=== PATIENT | female | born 1935 | race African-American/Black ===

== ENCOUNTER 2016-10-11 13:00 | Inpatient (IN) ==
[~2016-10-11 13:00] MED LIST: ACETAMINOPHEN 325 MG TABLET PO PRN; DOCUSATE SODIUM 100 MG CAPSULE PO PRN; MAGNESIUM SULF RIDER 2 GM in PREMIX 1 EACH IV PRN; MAGNESIUM SULF RIDER 4 GM in PREMIX 1 EACH IV PRN; MORPHINE 2 MG/1 ML SYRINGE IV PRN; ONDANSETRON 4 MG/2 ML VIAL IV PRN
[2016-10-11 14:18] LABS: Troponin I Only < 0.015 NG/ML (0.00-0.045)
--- NOTE | 2016-10-11 14:42 | Cardiology History & Physical ---
Assessment and Plan - Time spent with patient Time spent with patient: Greater than 30 minutes (1) Bradycardia Status: Acute Assessment and plan: SEE PLAN OF CARE LISTED BELOW Current Visit: Yes (2) Hypertension Status: Chronic Assessment and plan: SEE PLAN OF CARE LISTED BELOW Current Visit: Yes (3) Dyslipidemia Status: Chronic Assessment and plan: SEE PLAN OF CARE LISTED BELOW Current Visit: Yes (4) Advanced age Status: Chronic Assessment and plan: SEE PLAN OF CARE LISTED BELOW Current Visit: Yes (5) Dementia Status: Chronic Assessment and plan: SEE PLAN OF CARE LISTED BELOW Current Visit: Yes (6) Murmur, cardiac Status: Chronic Assessment and plan: SEE PLAN OF CARE LISTED BELOW Current Visit: Yes History of Present Illness Chief complaint: Symptomatic bradycardia History of present illness: 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 Burrell, 80BF, previously followed by Dr. Limon though not seen in cardiology clinic since October 2014. Risk factors include: advanced age, hypertension, dyslipidemia. Past medical history includes: bradycardia, moderate aortic stenosis, dementia. Much of this information is taken from the daughter, Padmaja, as her mother does have dementia. Padmaja his sister has power of attorney recruiter and is not present at this time. Patient was visiting with her daughter, Padmaja, when she requested a BC powder for chest pain. Her daughter took her to [place] ED where Dr. Groves evaluated patient and found her to be in sinus bradycardia, heart rate as low as 39 bpm. Patient's chest pain resolved prior to being evaluated, cardiac biomarkers are negative, EKG does not reflect [place]. Again, patient cannot further elaborate on chest pain and is usually fairly active cooking and cleaning her home. She still lives alone. After reviewing Dr. Limon October 2014 note, patient has a history of bradycardia and heart murmur. Approximately 2 years ago she wore a Holter monitor for 7 hours, heart rate down to 39 bpm, maximum 83 bpm and mean of 59 bpm. At that time, echo revealed EF 60%, moderate AMS and moderate mitral valve sclerosis. A long discussion ensued with the patient at that time as well as family members. Pacemaker was recommended certain that this represented sick sinus syndrome and bradycardia arrhythmias. At that time, family and patient felt as if they did not want to pursue pacemaker as she was asymptomatic. Today, in her demented state, denies chest pain, heaviness, tightness or shortness of breath. Denies syncope, near syncope or dizziness. Padmaja reports that she has no complaints of the previously stated symptoms that she is aware of. I personally contacted her pharmacy and spoke with pharmacist regarding the medication she is taking. She is not taking any arsen blocking agents. Echocardiogram has been ordered, thyroid studies. Labs from [facility] reveal no significant abnormality (BMP, magnesium, CBC). Continue to follow telemetry. EKG now. I did discuss the possibility of need for pacemaker with Ms. Burrell and her daughter. They are considering. Patient does have a significant aortic stenosis murmur and will await results from the echo. May consider treadmill stress test to evaluate chronotropic competence as patient and daughter believe she is not having significant symptoms. Will further discuss with Dr. Paulson and await additional recommendations. ASSESSMENT/PLAN: 1. BRADYCARDIA - EKG now, continue to follow telemetry. Patient may need PPM. 2. HYPERTENSION - usually well controlled, avoiding arsen blocking agents. Adjust medications accordingly during hospital stay 3. DYSLIPIDEMIA - fasting lipid profile in the morning. Continue Pravastatin 4. DEMENTIA - continue Aricept and Namenda. 5. MURMUR, CARDIAC - echo Home Medications Medication Instructions Recorded Confirmed Type Acetaminophen with Codeine 1 tablet PO DAILY 10/11/16 10/11/16 History [Acetaminophen-Cod #3 Tablet] Amlodipine Besylate [Amlodipine 10 mg PO DAILY 10/11/16 10/11/16 History Besylate] Donepezil HCl [Donepezil HCl] 10 mg PO BID 10/11/16 10/11/16 History Memantine [Namenda] 10 mg PO BID 10/11/16 10/11/16 History Pravastatin Sodium 20 mg PO BID 10/11/16 10/11/16 History Allergies Allergy/AdvReac Type Severity Reaction Status Date / Time No Known Allergies Allergy Unverified 06/02/14 11:36 Medical,Surgical,& Family Hx - Medical History Cardio: History of: Cardiac Dysrhythmia (Bradycardia), Hypertension (no current medications for this) No history of: CHF, CAD, [place] Neurology: History of: Dementia Endocrine: No history of: Diabetes Mellitus (IDDM), Diabetes Mellitus (NIDDM), Dyslipidemia Respiratory: No history of: Asthma, Bronchitis, COPD, Pneumonia Renal: No history of: Renal Problems Genitourinary: No history of: Problems Gastrointestinal: No history of: Gastrointestinal Bleed, GI Problems - Social History Smoking Status: Smoker, status unknown Frequency of Alcohol Use: None Type of Drug Use: None Lives With:: Alone Cardiology Physical Exam - Constitutional Vitals: Vital Signs Temp Pulse Resp BP Pulse Ox 97.9 F 40 L 18 154/64 98 10/11/16 13:12 10/11/16 14:00 10/11/16 13:12 10/11/16 13:12 10/11/16 13:43 Intake and Output 10/10/16 10/11/16 10/11/16 23:59 07:59 15:59 Other: Weight 51.341 kg Patient Weight 10/11/16 23:59 Weight 51.341 kg Exam: General: [Appears well with no apparent distress.] [Pleasant and cooperative. ] [Appears comfortable.] HEENT: [Bilateral arcus, normocephalic, atraumatic. Mucous membranes moist. No jaundice noted. Conjunctiva moist and clear, sclerae anicteric] Neck: No JVD/HJR, no thyromegaly or lymphadenopathy noted. Bilateral carotid bruits appreciated (suspect radiation from murmur) Cardiac: [Slow rate, regular rhythm.] [/ MICHAEL noted best at bilateral upper sternal borders] Lungs: [Clear to auscultation without accessory muscle use to assist the respiratory pattern.] Not requiring oxygen Abdomen: Soft, bowel sounds normoactive. Nontender and nondistended. No abdominal bruit or thrill noted. No masses noted. Musculoskeletal: No fluid collection. Decreased range of motion is noted. Extremities: No clubbing, cyanosis noted. [ No edema noted.] Upper extremity pulses 2+. Lower extremity pulses 2+. Capillary refill less than 3 seconds. Skin: No unusual lesions or rashes. No skin breakdown appreciated. Neuro: Awake, alert and oriented 3. Moves all extremities well without hemiparesis or paralysis. No essential tremor is appreciated. Result/EKG - Labs Lab Results: I have reviewed the past 24 hour labs (Reviewed labs from [facility]) Labs: Laboratory Results - last 24 hr 10/11/16 13:37 Free T4 0.88 - Diagnostic Findings Procedure: Chest x-ray: pending - EKG EKG results: interpreted by me EKG shows: bradycardia
--- NOTE | 2016-10-11 14:45 | EKG Report ---
Stationary ECG Study [facility] Test Date: 10/11/2016 2:45:18 PM Pat Name: EVA FLORES Department: Room: 268 Gender: F Leaf Conditioner: : 1935 Requested by: Jacqui Clark Order Number: [id number] Reading MD: LUCITA NOBLE Intervals [place] Rate: 41 P: 76 ID: [id number] QRS: 70 QRSD: 105 T: -12 QT: 530 QTc: 467 Interpretive Statements SINUS BRADYCARDIA POSSIBLE SEPTAL MYOCARDIAL INFARCTION, OF INDETERMINATE AGE MODERATE T-WAVE ABNORMALITY, CONSIDER ANTEROLATERAL ISCHEMIA Electronically Signed On 10-11-16 15:53:41 CDT by LUCITA NOBLE [email or web address]
--- NOTE | 2016-10-11 15:25 | XRay Report ---
2 view chest. Indication: Chest pain. Comparison: June 28, 2013. The heart is enlarged. There is left atrial prominence. There is prominence of both hilar regions which remain stable. There is calcific plaque present within the aortic knob. There are areas of scarring within the lung carey. No consolidation, pneumothorax, or pleural effusion. Moderate gaseous distention of bowel. Diffuse demineralization of the osseous structures. Impression: Stable cardiomegaly. No acute abnormality. PROCEDURE INTERPRETED AT [facility] DEPARTMENT OF RADIOLOGY Final Report Signed by: Dr. Meghan Pavon
[2016-10-11 15:31] LABS: Apearance,Urine Slightly Hazy (Clear); Bacteria,Urine Occasional /HPF (Few); Bilirubin,Urine Negative (Negative); Blood, Urine Negative (Negative); Glucose,Urine (UA) Negative (Negative); Ketones,Urine Negative (Negative); Mucus,Urine Few /LPF (Occasional); Nitrite,Urine Negative (Negative); Protein,Urine Negative; RBC,Urine 1 /HPF (0-4); Squamous Epithelial Cell,Urine Occasional /HPF (0-10); Urine Color Yellow (Yellow); Urine Specific Gravity 1.021 (1.001-1.035); Urine Urobilinogen < 2.0 EU/DL (0.2-1.0); WBC,Urine 1 /HPF (0-6)
--- NOTE | 2016-10-11 15:48 | ECHO Report ---
Smita Burrell Exam Date: 10/11/2016 14:08 Referring Physician: Technologist: kathy Hodges ARDMS, RVT Age: 80 Ht (in): 66 Wt (lb): 113 Gender: F Exam Location: [facility] Echo Indications: Chest pain, unspecified, Shoulder and back pain BP: / HR: 42 Rhythm: Sinus Technical Quality: Good IMPRESSIONS 1 - 2 + Increased left ventricular wall thickness. Left ventricular ejection fraction is estimated at 65 %. Mild to moderate atrial enlargement in apical view (elongated LA). Mitral valve sclerosis. Moderate aortic valve calcification. Mild aortic valve stenosis, mean gradient 19 mmHg, GENIA 1.2 cm. Trace to mild aortic valve regurgitation. Trace tricuspid valve regurgitation. Tricuspid regurgitation velocities suggest a PAP of 38 mmHg. Trace pulmonary valve regurgitation. MEASUREMENTS (Male / Female) Normal Values 2D ECHO LV Diastolic Diameter PLAX 4.0 cm 4.2 - 5.9 / 3.9 - 5.3 cm LV Systolic Diameter PLAX 2.1 cm LV Fractional Shortening PLAX 47.8 % IVS Diastolic Thickness 1.2 cm 0.6 - 1.0 / 0.6 - 0.9 cm LVPW Diastolic Thickness 1.1 cm 0.6 - 1.0 / 0.6 - 0.9 cm RV Internal Dim ED PLAX 4.1 cm Aortic Root Diameter 2.9 cm LA Systolic Diameter LX 3.8 cm 3.0 - 4.0 / 2.7 - 3.8 cm DOPPLER TR Peak Velocity 266.0 cm/s TR Peak Gradient 28.3 mmHg FINDINGS Left Ventricle Normal left ventricular cavity size. 1 - 2 + Increased left ventricular wall thickness. Left ventricular ejection fraction is estimated at 65 %. Right Ventricle The right ventricle is normal in size and function. Right Atrium The right atrium is normal in size. Left Atrium Mild to moderate atrial enlargement in apical view (elongated LA). Mitral Valve Mitral valve sclerosis. Mild mitral annular calcification. Aortic Valve Moderate aortic valve calcification. Mild aortic valve stenosis, mean gradient 19 mmHg, GENIA 1.2 cm. Trace to mild aortic valve regurgitation. Tricuspid Valve Morphologically normal tricuspid valve. Trace tricuspid valve regurgitation. Tricuspid regurgitation velocities suggest a PAP of 38 mmHg. Pulmonic Valve Morphologically normal pulmonic valve. Trace pulmonary valve regurgitation. Pericardium Normal pericardium without effusion. Aorta Normal ascending aorta dimension. Kenton Paulson MD (Electronically Signed) Final Date: 11 October 2016 15:47
[2016-10-11 15:55] VITALS: BP 166/70
--- NOTE | 2016-10-11 16:38 | Discharge Summary ---
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 LIMON Ms. Burrell, 80BF, previously followed by Dr. Limon though not seen in cardiology clinic since October 2014. Risk factors include: advanced age, hypertension, dyslipidemia. Past medical history includes: bradycardia, moderate aortic stenosis, dementia. Much of this information is taken from the daughter, Padmaja, as her mother does have dementia. Padmaja his sister has power of attorney lawyer and is not present at this time. Patient was visiting with her daughter, Padmaja, when she requested a BC powder for chest pain. Her daughter took her to [place] ED where Dr. Groves evaluated patient and found her to be in sinus bradycardia, heart rate as low as 39 bpm. Patient's chest pain resolved prior to being evaluated, cardiac biomarkers are negative, EKG does not reflect [place]. Again, patient cannot further elaborate on chest pain and is usually fairly active cooking and cleaning her home. She still lives alone. After reviewing Dr. Limon October 2014 note, patient has a history of bradycardia and heart murmur. Approximately 2 years ago she wore a Holter monitor for 7 hours, heart rate down to 39 bpm, maximum 83 bpm and mean of 59 bpm. At that time, echo revealed EF 60%, moderate AMS and moderate mitral valve sclerosis. A long discussion ensued with the patient at that time as well as family members. Pacemaker was recommended certain that this represented sick sinus syndrome and bradycardia arrhythmias. At that time, family and patient felt as if they did not want to pursue pacemaker as she was asymptomatic. Today, in her demented state, denies chest pain, heaviness, tightness or shortness of breath. Denies syncope, near syncope or dizziness. Padmaja reports that she has no complaints of the previously stated symptoms that she is aware of. I personally contacted her pharmacy and spoke with pharmacist regarding the medication she is taking. She is not taking any arsen blocking agents. Echocardiogram has been ordered, thyroid studies. Labs from [place] ED reveal no significant abnormality (BMP, magnesium, CBC). Continue to follow telemetry. EKG now. I did discuss the possibility of need for pacemaker with Ms. Burrell and her daughter. They are considering. Patient does have a significant aortic stenosis murmur and will await results from the echo. May consider treadmill stress test to evaluate chronotropic competence as patient and daughter believe she is not having significant symptoms. Will further discuss with Dr. Paulson and await additional recommendations. ASSESSMENT/PLAN: 1. BRADYCARDIA - EKG now, continue to follow telemetry. Patient may need PPM. 2. HYPERTENSION - usually well controlled, avoiding arsen blocking agents. Adjust medications accordingly during hospital stay 3. DYSLIPIDEMIA - fasting lipid profile in the morning. Continue Pravastatin 4. DEMENTIA - continue Aricept and Namenda. 5. MURMUR, CARDIAC - echo ADDENDUM: Echocardiogram revealed EF of 60%, mild aortic stenosis. Dr. Paulson saw patient and granddaughter today and discussed the possibility of permanent pacemaker implantation. Ms. Burrell vehemently declined pacemaker. Therefore, her power of attorney lawyer was contacted Bibi Sanderson regarding recommendations. It was felt best to discharge Ms. Burrell as she and Ms. Sanderson felt as if she was having no symptoms from her bradycardia including denying syncope, near syncope, fatigue, lightheadedness or dizziness. Ms. Sanderson and her other daughter, Padmaja, state that Ms. Burrell can walk many miles at a time without complaints. We discussed the possibility of a Holter monitor however, Ms. Sanderson was not aware the monitor. Greater than 20 minutes was spent discussing signs and symptoms of symptomatic bradycardia with patient and family members. Family members will monitor her for these symptoms. We will give her a follow-up appoint with Dr. Limon in approximately 2 weeks for further workup and/or management as necessary. - Time spent with patient Time with patient DS: Greater than 30 minutes Diagnosis - Discharge Diagnosis (1) Bradycardia Status: Chronic (2) Hypertension Status: Chronic (3) Dyslipidemia Status: Chronic (4) Advanced age Status: Chronic (5) Dementia Status: Chronic (6) Murmur, cardiac Status: Chronic Specialty Discharge - Follow Up or Referrals Follow up with: Jonas Limon MD [Physician] - 2 Weeks (EKG) Discharge Plan - Discharge Data Disposition: Disch To Home/Self Care Condition at Discharge: Stable Discharge Diet: advance to your usual diet Activity: resume usual activities as tolerated Hygiene: no restrictions Weight Bearing at Discharge: full weight bearing Driving: other (No driving) Contact your physician if you experience:: fever over 101, Difficulty voiding, Redness or swelling, Nausea/Vomiting, Shortness of breath, Bleeding, pain uncontrolled by pain medications - Discharge Medications Continue Amlodipine Besylate 10 mg PO DAILY Memantine [Namenda] 10 mg PO BID Acetaminophen with Codeine [Acetaminophen-Cod #3 Tablet] 1 tablet PO DAILY Pravastatin Sodium 20 mg PO BID Donepezil HCl 10 mg PO BID - Follow Up or Referral - Forms/Instructions Exam - Constitutional Vitals: Period Temp Pulse Resp BP Sys/Higgins Pulse Ox Last 24 Hr 97.7 F-97.9 F 40-45 18-18 154-191/64-77 95-98 Exam: General: [Appears well with no apparent distress.] [ [Appears comfortable.] HEENT: [PERRL, normocephalic, atraumatic. Mucous membranes moist. No jaundice noted. Conjunctiva moist and clear, sclerae anicteric] Neck: No JVD/HJR, no thyromegaly or lymphadenopathy noted. No carotid bruit appreciated Cardiac: [Slow rate and rhythm. IV/ systolic ejection murmur heard best at bilateral upper sternal borders. Lungs: [Clear to auscultation without accessory muscle use to assist the respiratory pattern.] Not requiring oxygen Abdomen: Soft, bowel sounds normoactive. Nontender and nondistended. No abdominal bruit or thrill noted. No masses noted. Musculoskeletal: No fluid collection. Decreased range of motion is noted. Extremities: No clubbing, cyanosis noted. [ No edema noted.] Upper extremity pulses 2+. Lower extremity pulses 2+. Capillary refill less than 3 seconds. Skin: No unusual lesions or rashes. No skin breakdown appreciated. Neuro: Awake, alert and oriented to person. Moves all extremities well without hemiparesis or paralysis. No essential tremor is appreciated. Discharge Results Procedures and tests throughout hospitalization: Pending Orders 10/11/16 21:00 Troponin,CKMB & Ck Total Q8H 10/12/16 04:00 Comp Blood Count Auto Diff IN AM Comprehensive Metabolic Panel IN AM Lipid Panel IN AM 10/12/16 05:00 Troponin,CKMB & Ck Total Q8H Labs on day of discharge: Labs from last 24 hours 10/11/16 10/11/16 10/11/16 Unknown 13:37 13:37 Total Creatine Kinase 97 CK-MB (CK-2) 1.3 Troponin I < 0.015 Free T4 0.88 TSH 3rd Generation Urine Color Yellow Urine Appearance Slightly hazy Urine pH 5.0 Ur Specific [place] 1.021 Urine Protein Negative Urine Glucose (UA) Negative Urine Ketones Negative Urine Blood Negative Urine Nitrate Negative Urine Bilirubin Negative Urine Urobilinogen < 2.0 H Urine Leukocytes Trace Urine RBC 1 Urine WBC 1 Ur Squamous Epith Cells Occasional Urine Bacteria Occasional Urine Mucus Few Ur Culture Indicated? Not indicated 10/11/16 13:37 Total Creatine Kinase CK-MB (CK-2) Troponin I Free T4 TSH 3rd Generation 0.550 Urine Color Urine Appearance Urine pH Ur Specific [place] Urine Protein Urine Glucose (UA) Urine Ketones Urine Blood Urine Nitrate Urine Bilirubin Urine Urobilinogen Urine Leukocytes Urine RBC Urine WBC Ur Squamous Epith Cells Urine Bacteria Urine Mucus Ur Culture Indicated? - Imaging and Cardiology Cardiology Procedure: report reviewed by me Procedure: Chest x-ray: report reviewed by me, Ultrasound: report reviewed by me (Echocardiogram) DS: Provider Date of admission: 10/11/16 13:03 Primary care physician: . No PCP Attending physician on admission: Kenton Paulson MD Discharging clinician: Jacqui Mckeon NP Expected date of discharge: 10/11/16
[2016-10-12] MEDS ORDERED: PANTOPRAZOLE 40 MG TABLET PO SCH (09:00)
== END 2016-10-11 17:17 | disposition home or self-care (01) | DRG 310 ==
LOC: N.TELES 13:03
PROVIDERS: ADMIT Internal Medicine Cardiovascular Disease; ATTEND Internal Medicine Cardiovascular Disease

== ENCOUNTER 2019-11-17 12:03 | Inpatient (IN) ==
[2019-11-17] MEDS ORDERED: SODIUM CHLORIDE 0.9% 500 ML IV STA (12:33)
[2019-11-17 12:44] LABS: Basophils % 0.2 % (0.0-0.8); Eosinophils # 0.1 10*3/uL (0.0-0.87); Eosinophils % 0.4 % (0.00-10.9); Hemoglobin 10.8 GM/DL (12.0-16.0); Immature Granulocytes % 0.5 %; Immature Granulocytes Absolute 0.09 #; Lymphocytes % 5.7 % (21.3-54.2); Mean Corpuscular HGB Conc 30.9 GM/DL (32-36); Mean Platelet Volume 10.7 FL (9.6-12.0); Monocytes % 3.9 % (1.7-12.7); Neutrophils % 89.3 % (38.7-73.9); Platelet Count 153 T/CUMM (130-400); Red Blood Count 4.12 MC/CUMM (3.8-5.5); Red Cell Distribution Width 14.8 % (9.3-17.3); White Blood Count 18.2 T/CUMM (4-12)
[2019-11-17 12:57] LABS: ABG Base Excess 0.7 MMOL/L (-2.5-2.5); ABG HCO3 24.9 MMOL/L (20-26); ABG Oxygen Saturation 93.4 % (95-100); ABG PCO2 38.2 MM HG (35-48); ABG PH 7.432 (7.35-7.45); ABG PO2 71.2 MM HG (80-95); ABG TCO2 26.1 MMOL/L (23-27); Allen Test Positive
[2019-11-17 13:08] LABS: Albumin 2.3 G/DL (3.4-5.0); Bilirubin,Total 0.9 MG/DL (0.2-1.0); Calcium 8.8 MG/DL (8.5-10.1); Osmolality,Calculated 303.9 MOS/KG (273-304); Total Protein 6.4 G/DL (6.4-8.3)
[2019-11-17] MEDS ORDERED: SODIUM CHLORIDE 0.9% 1,000 ML IV STA ×2 (14:03→14:09)
[2019-11-17 14:16] LABS: Apearance,Urine Slightly Hazy (Clear); Bilirubin,Urine Negative (Negative); Blood, Urine Small mg/dL (Negative); Glucose,Urine (UA) 50 mg/dL (Negative); Ketones,Urine Negative (Negative); Mucus,Urine Many /LPF (Occasional); Nitrite,Urine Negative (Negative); Protein,Urine 100 MG/DL; RBC,Urine 2 /HPF (0-4); Squamous Epithelial Cell,Urine Occasional /HPF (0-10); Urine Color Yellow (Yellow); Urine Specific Gravity 1.017 (1.001-1.035); WBC,Urine 3 /HPF (0-6)
[2019-11-17] MEDS ORDERED: cefTRIAXone 1,000 MG in SODIUM CHLORIDE 0.9% 100 ML IV STA (14:32)
[2019-11-17] MEDS ORDERED: ONDANSETRON 4 MG/2 ML VIAL IV PRN (15:41)
[2019-11-17] MEDS ORDERED: HEPARIN DRIP 25,000 UNITS/500 ML PREMIX IV SCH (16:00)
[2019-11-17] MEDS: dilTIAZem Drip 125 MG/125 ML PREMIX IV SCH (16:15)
[2019-11-17] MEDS ORDERED: PNEUMOCOCCAL VACCINE (13 VALENT) 0.5 ML SYRINGE IM ONE (19:23)
[2019-11-17] MEDS: POTASSIUM CHLORIDE 20 MEQ TABLET PO SCH (19:29)
[2019-11-17] MEDS: PANTOPRAZOLE 40 MG TABLET PO SCH (19:29)
[2019-11-17] MEDS: ALBUTEROL 2.5 MG/3 ML NEB RESP TX SCH (19:56)
[2019-11-18 00:36] LABS: Calcium 8.8 MG/DL (8.5-10.1)
[2019-11-18 00:41] LABS: Albumin 2.3 G/DL (3.4-5.0); Bilirubin,Total 0.7 MG/DL (0.2-1.0); Total Protein 6.5 G/DL (6.4-8.3)
[2019-11-18 00:49] LABS: Basophils % 0.3 % (0.0-0.8); Eosinophils % 0.1 % (0.00-10.9); Hematocrit 34.2 VOL% (35.7-47.0); Hemoglobin 10.7 GM/DL (12.0-16.0); Immature Granulocytes % 0.9 %; Immature Granulocytes Absolute 0.11 #; Lymphocytes # 1.6 10*3/uL (1.4-4.0); Lymphocytes % 13.4 % (21.3-54.2); Mean Corpuscular HGB Conc 31.3 GM/DL (32-36); Mean Corpuscular Volume 82.8 FL (87-102); Mean Platelet Volume 11.3 FL (9.6-12.0); Neutrophils % 77.3 % (38.7-73.9); Platelet Count 155 T/CUMM (130-400); Red Blood Count 4.13 MC/CUMM (3.8-5.5); Red Cell Distribution Width 14.8 % (9.3-17.3); White Blood Count 11.9 T/CUMM (4-12)
[2019-11-18] MEDS: ALBUTEROL 2.5 MG/3 ML NEB RESP TX SCH ×4 (01:41→19:51)
[2019-11-18] MEDS: dilTIAZem Drip 125 MG/125 ML PREMIX IV SCH (04:29)
[2019-11-18 09:55] LABS: Calcium 8.7 MG/DL (8.5-10.1); Osmolality,Calculated 304.9 MOS/KG (273-304)
[2019-11-18] MEDS: PANTOPRAZOLE 40 MG TABLET PO SCH (09:57)
[2019-11-18] MEDS: POTASSIUM CHLORIDE 20 MEQ TABLET PO SCH (09:57)
[2019-11-18] MEDS ORDERED: POTASSIUM CHLORIDE 20 MEQ/15 ML UDCUP PO ONE (09:58)
[2019-11-18] MEDS: DILTIAZEM 30 MG TABLET PO SCH ×3 (11:37→23:39)
[2019-11-18] MEDS: APIXABAN 5 MG TABLET PO SCH ×2 (12:23→23:39)
[2019-11-18] MEDS: DEXTROSE 5% 1,000 ML IV SCH (15:02)
[2019-11-18 15:55] VITALS: BP 135/52
[2019-11-18] MEDS: DONEPEZIL 10 MG TABLET PO SCH (23:40)
[2019-11-18] MEDS: MEMANTINE 10 MG TABLET PO SCH (23:40)
[2019-11-18] MEDS: MENTHOL/ZINC OXIDE OINT 71 GM JAR TOP SCH (23:40)
[2019-11-19] MEDS: ALBUTEROL 2.5 MG/3 ML NEB RESP TX SCH ×2 (00:11→07:38)
[2019-11-19] MEDS: DILTIAZEM 30 MG TABLET PO SCH ×2 (04:09→10:47)
[2019-11-19 04:38] LABS: Basophils % 0.2 % (0.0-0.8); Eosinophils # 0.2 10*3/uL (0.0-0.87); Eosinophils % 1.6 % (0.00-10.9); Hematocrit 35.8 VOL% (35.7-47.0); Immature Granulocytes % 1.1 %; Immature Granulocytes Absolute 0.11 #; Lymphocytes # 1.7 10*3/uL (1.4-4.0); Lymphocytes % 16.9 % (21.3-54.2); Mean Corpuscular HGB Conc 30.7 GM/DL (32-36); Mean Corpuscular Volume 83.8 FL (87-102); Mean Platelet Volume 12.5 FL (9.6-12.0); Monocytes % 8.2 % (1.7-12.7); Platelet Count 187 T/CUMM (130-400); Red Blood Count 4.27 MC/CUMM (3.8-5.5); Red Cell Distribution Width 14.9 % (9.3-17.3); White Blood Count 10.2 T/CUMM (4-12)
[2019-11-19 04:53] LABS: Calcium 9.1 MG/DL (8.5-10.1); Osmolality,Calculated 299.3 MOS/KG (273-304)
[2019-11-19 06:10] LABS: Albumin 2.2 G/DL (3.4-5.0); Bilirubin,Total 0.4 MG/DL (0.2-1.0); Calcium 9.1 MG/DL (8.5-10.1); Osmolality,Calculated 297.4 MOS/KG (273-304); Total Protein 6.6 G/DL (6.4-8.3)
[2019-11-19] MEDS: APIXABAN 5 MG TABLET PO SCH (10:47)
[2019-11-19] MEDS: MEMANTINE 10 MG TABLET PO SCH (10:47)
[2019-11-19] MEDS: PANTOPRAZOLE 40 MG TABLET PO SCH (10:47)
[2019-11-19] MEDS: MENTHOL/ZINC OXIDE OINT 71 GM JAR TOP SCH (10:47)
[2019-11-19] MEDS: DONEPEZIL 10 MG TABLET PO SCH (10:47)
[2019-11-19] MEDS: POTASSIUM CHLORIDE 20 MEQ TABLET PO SCH (10:47)
[2019-11-19] MEDS: DEXTROSE 5% 1,000 ML IV SCH (11:48)
== END 2019-11-19 13:00 | disposition hospice, home (50) | DRG 175 ==
LOC: N.ED 12:03 → N.EDINP 15:41 → N.CC 16:20
PROVIDERS: ADMIT Internal Medicine; ATTEND Internal Medicine